=== PATIENT | female | born 1995 | race Caucasian/White ===

== ENCOUNTER 2020-04-21 07:55 | Day surgery (SDC) | payer OTHER ==
[~2020-04-21] VITALS: Ht 157.5 cm; Wt 95.4 kg
[~2020-04-21 07:55] MED LIST: CLARITIN10 M2 PO; FISH OIL 1,0001 EAC2 NG; SUMATRIPTAN SUC50 MG PO; VITAMIN C1000 MG PO
--- NOTE | 2020-04-21 08:22 | NUR ---
[facility]
--- NOTE | 2020-04-21 10:04 | NUR ---
04/21/20 1004 Sheets,Jessica 0989 PT ARRIVED TO PACU ON 6L VIA MASK, ORAL AIRWAY IN PLACE. RESP EVEN AND UNLABORED. VSS.
--- NOTE | 2020-04-21 10:25 | NUR ---
PT ARRIVES TO DS RM 4 VIA STRETCHER FROM PACU DROWSY, EASY TO AROUSE. PT DENIES ANY NAUSEA BUT STATES PAIN IN RUQ. PT STATES PAIN IS INCREASING AND IT IS HARD TO BREATHE. PT EDUCATED ABOUT GAS AND SURGICAL PAIN AND IS ENCOURAGED TO TAKE DEEP BREATHS. PT HAS PILLOW TO BRACE ABD WITH. PT PROVIDED ICED WATER AND CRACKERS AND ENCOURAGED TO EAT BEFORE PAIN MEDICATION GIVEN. CALL LIGHT WITHIN REACH.
--- NOTE | 2020-04-21 11:30 | NUR ---
PT RESTING IN BED, CONT TO COMPLAIN OF RUQ PAIN. STATES IT IS CRAMPING "FEELS LIKE I AM HAVING A GALLBALADDER ATTACK." PT REPOSITIONED IN BED TO HIGH FOWLERS TO HELP WITH POSS GAS PAIN. PT STATES FEELING "REALLY HOT" AND SCD'S REMOVED PER PT REQUEST. BLANKETS REMOVED FROM PT AND TIMMY HUGGER PLACED ON COOL. A FEW MINUTES LATER PT STATES "I THINK I MIGHT THOW UP," PT PROVIDED EMESIS BAG AND HAS APPROX 200 MLS GREEN COLORED EMESIS. PT PROVIDED WET WASHCLOTH AND ASSISTED INTO NEW GOWN. PT STATES, "I THINK THAT HELPED THE CRAMPING FEELING." PT PROVIDED ANOTHER EMESIS BAG TO HAVE AT HAND. 1145: PT STATES RUQ PAIN AND WOULD LIKE PAIN MEDICINE. PT PROVIDED JELLO WITH MEDICATION, SEE EMAR. CALL LIGHT WITHIN REACH. ENC TO USE WITH URGE TO VOID.
--- NOTE | 2020-04-21 12:02 | NUR ---
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 C/O CRAMPING IN EPIGASTRIC AREA. EXPLAINED TO PATIENT THE CRAMPING MAY BE FROM THE GAS THEY USE TO FILL THE ABDOMEN DURING SURGERY. DRANK ALL OF WATER IN WATER BOTTLE. REQUESTED REFILL. WATER REFILLED. NO OTHER REQUESTS AT THIS TIME.
[2020-04-21] MEDS ORDERED: NORCO 10-325 T1 EACH PO (12:18)
--- NOTE | 2020-04-21 12:43 | NUR ---
PT UP TO BATHROOM WITH RN ASSIST. STEADY GAIT, DENIES NAUSEA OR DIZZINESS WITH MOVEMENT.
--- NOTE | 2020-04-21 12:47 | NUR ---
PT ABLE TO VOID 400 MLS CONCENTRATED YELLOW URINE WITH NO PROBLEMS. BACK TO DS RM 4, SITTING AT SIDE OF BED WITH RN PRESENT.
--- NOTE | 2020-04-21 13:00 | NUR ---
PT MOTHER ARRIVES FOR SAFE RIDE HOME, WAITS IN HOSPITAL LOBBY FOR PT. PT DRESSES SELF. DC INSTRUCTIONS GIVEN, PAIN PRESCRIPTION IN DC PACKET. PT DC VIA WC TO PERSONAL VEHICLE WITH MOTHER TO HOME.
--- NOTE | 2020-04-24 11:29 | PATH ---
[facility] [address] [facility] [place], [place] [address] Signed SPECIMEN(S): A GALLBLADDER AND STONES SPECIMEN SOURCE: A. GALLBLADDER AND STONES CLINICAL HISTORY: Biliary colic. FINAL PATHOLOGIC DIAGNOSIS: Gallbladder, cholecystectomy: - Mild chronic cholecystitis. - Cholelithiasis. NAL:cml:C2NR MICROSCOPIC EXAMINATION: Histologic sections of all submitted blocks are examined by light microscopy. These findings, together with the gross examination, support the pathologic diagnosis. GROSS DESCRIPTION: The specimen, labeled "BL, A.," and designated on the requisition "gallbladder with stones," is received in formalin and consists of Specimen: Previously opened gallbladder. Dimensions: 6.0 x 2.4 x 1.5 cm. Serosa: Violaceous and smooth with attached adipose tissue. Cystic Duct: Unobstructed. Calculi: Multiple bosselated, yellow-green calculi measuring 3.0 x 1.8 x 0.6 cm in aggregate. Mucosa: [place]-brown and dull. Wall thickness: Up to 0.5 cm. Lymph node: No pericystic lymph nodes are grossly identified. Additional: None. Necktie Maker sections are submitted in cassette (A1). AT (under the direct supervision of a pathologist) The Gross Description was prepared using a voice recognition system. The report was reviewed for accuracy; however, sound-alike word errors, addition and/or deletions may occur. If there is any question about this report, please contact Client Services. PERFORMING LABORATORY: The technical component was performed by [employer], Kylee Wiseman, PATIENT NAME: SEVERIANO,EVAN DAVID PATHOLOGY DATE OF : [birth year] REPORT #: [id number] PHYSICIAN: ANA LUISA DUMAS PCP: NO PRIMARY CARE PHYSICIAN REPORT IS CONFIDENTIAL AND NOT TO BE RELEASED WITHOUT AUTHORIZATION [facility] [address] [place], [place] [address] [place] [address] (Marketing Support Assistant: Steph Arroyo MD; CLIA# [id number]). Professional interpretation was performed by [facility], [address] [address] (CLIA# [id number]). Diagnostician: Ayleen Mack MD Pathologist Electronically Signed 04/24/2020 Copies: ~ PATIENT NAME: EVAN العلي PATHOLOGY DATE OF : [birth year] REPORT #: [id number] PHYSICIAN: ANA LUISA DUMAS PCP: NO PRIMARY CARE PHYSICIAN REPORT IS CONFIDENTIAL AND NOT TO BE RELEASED WITHOUT AUTHORIZATION
--- NOTE | 2020-04-25 07:21 | OR ---
[facility] [address] [place], [place] [address] Signed DATE OF OPERATION: 04/21/2020 SURGEON: Marilou Raman MD PREOPERATIVE DIAGNOSES: Cholecystitis and cholelithiasis. POSTOPERATIVE DIAGNOSES: Cholecystitis and cholelithiasis. PROCEDURE: Laparoscopic cholecystectomy with intraoperative cholangiogram. ESTIMATED BLOOD LOSS: Minimal. FINDINGS: Pearl's intraoperative cholangiogram was unremarkable. She had multiple stones in the gallbladder. The gallbladder was somewhat small and contracted. INDICATIONS: Pearl is a 24-year-old female with a body mass index of 37. She has been having trouble with epigastric right upper quadrant and left upper quadrant abdominal pain for some time. She stated it radiates to her back and her right shoulder. She has attacks of nausea and vomiting. She went to her primary care provider. Liver function tests were elevated. Ultrasound demonstrated multiple mobile gallstones. The gallbladder wall is not particularly thickened. The common bile duct was borderline at 6.5 mm. She had been asked to see me with respect to the above. In the meantime, she was online reading and made herself quite knowledgeable with respect to the gallbladder. In the office, I gave her a brochure on the gallbladder and we went through a page by page. She understands the location and function of the gallbladder. She understands laparoscopic versus open cholecystectomy. We reviewed the expected intraop and postop course. There is risk to surgery including, but not limited to bleeding, infection, scarring, change in contour of the skin, damage to bowel, damage to main bile duct, incisional hernias and other unforeseen comorbidities. She had expressed and understanding wished to proceed. DESCRIPTION OF PROCEDURE: I had met with Pearl in our preop area. After answering her questions, we took her into the operating room. She was placed in the supine position under general Electronically Signed By: MARILOU RAMAN MD 04/25/20 0721 PATIENT NAME: PEARL العلي OPERATIVE REPORT DATE OF : [birth year] REPORT #: [id number] PHYSICIAN: MARILOU RAMAN MD PCP: NO PRIMARY CARE PHYSICIAN REPORT IS CONFIDENTIAL AND NOT TO BE RELEASED WITHOUT AUTHORIZATION [facility] [address] [place], [place] [address] Signed endotracheal tube anesthesia. She was given preoperative antibiotics along with SCDs. She was also given a subcutaneous heparin. She was then prepped and draped in usual standard fashion. All trocars were then placed in her usual positions under direct visualization of camera without difficulty. We had taken pictures throughout for photodocumentation. The gallbladder was grasped and elevated in the right upper quadrant. The triangle of [place] was dissected free and her cystic artery was running parallel with the cystic duct. They were bluntly and the cystic artery was clipped and divided. After this, the intraoperative cholangiocatheter was inserted into the cystic duct. The intraoperative cholangiogram was then performed. It was found to be unremarkable. The cystic duct stump was secured with a PDS Endoloop and 2 clips were placed across the cystic duct stump to alexia its location. The gallbladder was then removed from the gallbladder fossa with the help of the cautery and placed into an EndoCatch bag. We used our laparoscopic suturing device to pass 0 Vicryl suture on either side of the fascia of the subxiphoid trocar site. This was tied down to close this fascia primarily. After this, all the gas was allowed to escape and all the trocars were removed along with the gallbladder. We closed the fascia of the supraumbilical trocar site with interrupted [id number] and simple 0-Vicryl sutures. Local anesthetic was injected into all trocar sites. Each trocar site was irrigated and suctioned out until clear. The skin and dermis of each trocar site were closed with interrupted 3-0 subcuticular Monocryl sutures. Dry gauze and tape were applied to all incisions. Pearl was awakened from her anesthesia, extubated in the OR, and taken to the recovery room in stable condition. Marilou Raman MD ALB/MODL /[id number] cc: MD Bindu Cummings PA Copies: MARILOU RAMAN MD Electronically Signed By: MARILOU RAMAN MD 04/25/20 0721 PATIENT NAME: PEARL العلي OPERATIVE REPORT DATE OF : [birth year] REPORT #: [id number] PHYSICIAN: MARILOU RAMAN MD PCP: NO PRIMARY CARE PHYSICIAN REPORT IS CONFIDENTIAL AND NOT TO BE RELEASED WITHOUT AUTHORIZATION [address] [address] Signed ~ Electronically Signed By: MARILOU RAMAN MD 04/25/20 0721 PATIENT NAME: PEARL العلي OPERATIVE REPORT DATE OF : [birth year] REPORT #: [id number] PHYSICIAN: MARILOU RAMAN MD PCP: NO PRIMARY CARE PHYSICIAN REPORT IS CONFIDENTIAL AND NOT TO BE RELEASED WITHOUT AUTHORIZATION
== END 2020-04-21 13:25 | disposition home or self-care (01) ==
LOC: DS 07:55
PROVIDERS: ATTEND Colon & Rectal Surgery
PROC: BF13YZZ Fluoroscopy of Gallbladder and Bile Ducts using Other Contrast (ICD-10-PCS; 2020-04-21)
PROC: 0FT44ZZ Resection of Gallbladder, Percutaneous Endoscopic Approach (ICD-10-PCS; principal; 2020-04-21 09:00)
DX: K80.10 Calculus of gallbladder with chronic cholecystitis without obstruction (principal); E78.5 Hyperlipidemia, unspecified; G43.909 Migraine, unspecified, not intractable, without status migrainosus; F17.200 Nicotine dependence, unspecified, uncomplicated; Z88.6 Allergy status to analgesic agent; Z79.899 Other long term (current) drug therapy
CPT/HCPCS: 00790; 74300; J0690; J1100; J1170; J1644; J1885; J2001; J2405; J2704; J3010; J7121; Q9967